=== PATIENT | female | born 2000 | race Caucasian/White ===

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

== ENCOUNTER 2018-04-10 13:10 | Emergency (ER) | payer BC, MEDICAID ==
[~2018-04-10] VITALS: Ht 160 cm; Wt 68.0 kg
[2018-04-10 13:13] VITALS: BP_SYST 122
[2018-04-10 14:29] LABS: BILIRUBIN,URINE NEGATIVE (NEGATIVE); CLARITY/URINE CLEAR (CLEAR); COLOR,URINE YELLOW (YELLOW); GLUCOSE,URINE NEGATIVE (NEGATIVE); KETONES,URINE NEGATIVE (NEGATIVE); LEUKOCYTE ESTERASE ,URINE NEGATIVE (NEGATIVE); NITRITE, URINE NEGATIVE (NEGATIVE); PH,URINE 5.5 (5.0-8.0); PROTEIN URINE NEGATIVE (NEGATIVE); UROBILINOGEN,URINE 0.2 (0.2-1.0)
[2018-04-10 14:31] LABS: HEMATOCRIT 36.9 % (36-48); HEMOGLOBIN 11.4 g/dL (12.0-16.0); MEAN CORPUSCULAR HEMOGLOBIN 20 pg (27-31); MEAN CORPUSCULAR HGB CONC 31 % (32-36); MEAN CORPUSCULAR VOLUME 63 fL (79.0-98.0); PLATELET COUNT (AUTO) 264 K/uL (130-430); RED BLOOD CELL COUNT(AUTO) 5.84 MIL/uL (4.2-6.2); RED CELL DISTRIBUTION WIDTH 15.1 % (9.0-15.0); WHITE BLOOD COUNT (AUTO) 10.7 K/uL (4.5-11.0)
[2018-04-10 14:34] LABS: BLOOD, URINE TRACE (NEGATIVE)
[2018-04-10 14:43] LABS: CREATININE 0.61 mg/dL (0.55-1.30); POTASSIUM 3.6 mmol/L (3.5-5.1)
[2018-04-10 14:48] LABS: ALBUMIN 3.7 g/dL (3.4-4.8); TOTAL BILIRUBIN 0.4 mg/dL (0.0-1.0)
[2018-04-10 15:01] LABS: BASOPHILS % (MANUAL) 0 % (0-2); EOSINOPHILS % (MANUAL) 0 % (0-7); LYMPHOCYTES % (MANUAL) 28 % (20-46); MONOCYTES % (MANUAL) 6 % (0-11)
[2018-04-10 15:06] LABS: BACTERIA,URINE RARE /HPF (None Seen); MUCUS,URINE None Seen /LPF (None Seen); WBC,URINE 0-3 /HPF (0-3); YEAST,URINE None Seen /HPF (None Seen)
[2018-04-10 15:07] LABS: TRIPLE PHOSPHATE CRYSTAL,UR None Seen /HPF (None Seen); URIC ACID CRYSTALS,URINE 0-10 /HPF (None Seen)
[2018-04-10 15:36] VITALS: BP_SYST 122
== END 2018-04-10 15:36 | disposition home or self-care (01) ==
LOC: SED 13:10
DX: K52.9 Noninfective gastroenteritis and colitis, unspecified (principal); J45.909 Unspecified asthma, uncomplicated; Z86.2 Personal history of diseases of the blood and blood-forming organs and certain disorders involving the immune mechanism
CPT/HCPCS: 36415; 74021; 80053; 81000-TC; 81025; 83690-TC; 85007; 85027; 99285

== ENCOUNTER 2019-06-22 23:04 | Emergency (ER) | payer BC ==
[~2019-06-22] VITALS: Ht 162.6 cm; Wt 72.6 kg
[2019-06-22 23:10] VITALS: BP_SYST 131
--- NOTE | 2019-06-22 23:10 | NUR ---
Patient triaged and placed in waiting room. VSS and patient appears in no acute distress at this time. Accompanied by FRIEND, awaiting available bed, and MD notified of need for MSE.
--- NOTE | 2019-06-23 00:55 | NUR ---
Patient to ER bed 2 to gown for evaluation. Side rails up.
--- NOTE | 2019-06-23 01:23 | NUR ---
ER at bedside examining patient.
[2019-06-23] MEDS ORDERED: DIPHENHYDRAMINE HCL 25 MG CAPSULE PO ONE (01:45)
[2019-06-23] MEDS ORDERED: PREDNISONE 20 MG TABLET PO ONE (01:45)
[2019-06-23] MEDS ORDERED: FAMOTIDINE 20 MG TABLET PO ONE (01:45)
--- NOTE | 2019-06-23 02:01 | NUR ---
Patient given written and verbal discharge instructions and verbalizes understanding. ER MD discussed with patient the results and treatment provided. Patient in stable condition. ID arm band removed. Rx of prednisone given. Patient educated on pain management and to follow up with PMD. Pain Scale 2/10. Opportunity for questions provided and answered. Medication side effect fact sheet provided.
[2019-06-23 02:03] VITALS: BP_SYST 128
== END 2019-06-23 02:03 | disposition home or self-care (01) ==
LOC: SED 23:04
DX: S60.562A Insect bite (nonvenomous) of left hand, initial encounter (principal); J45.909 Unspecified asthma, uncomplicated; W57.XXXA Bitten or stung by nonvenomous insect and other nonvenomous arthropods, initial encounter; Y93.89 Activity, other specified; Y92.89 Other specified places as the place of occurrence of the external cause; Y99.8 Other external cause status
CPT/HCPCS: 29125; 99284; J7512; Q0163